=== PATIENT | female | born 1940 | race Caucasian/White ===

== ENCOUNTER → 2016-10-13 | Outpatient (CLI) | payer MEDICARE, OTHER ==
--- NOTE | 2016-10-13 19:30 | REP ---
MRCP examination without contrast: History: Acute biliary pain. Acute biliary pancreatitis without necrosis or infection. Technique: Axial T2 HASTE and coronal T2 TRUFISP images are acquired. In addition, maximum intensity projection images from MRCP examination are acquired and displayed rotational. MRCP findings: No pancreatic or hepatic lesion is seen. The main pancreatic duct is normal in caliber, contour and course. The common bile duct does not appear dilated. It measures 6 mm in greatest diameter. Visualized intrahepatic biliary tract radicals are unremarkable. There is a tiny 3-4 mm cyst in the right lobe of the liver seen on MRCP images. Impression: Tiny hepatic cysts seen, otherwise normal MRCP examination. Signed by Avni Fletcher MD 10/14/2016 07:51 A
== END ==
LOC: M RAD 10:43
PROVIDERS: ATTEND Internal Medicine Gastroenterology
DX: K76.89 Other specified diseases of liver (principal)

== ENCOUNTER → 2021-01-25 | Outpatient (REF) | payer MEDICARE, OTHER ==
[2021-01-25 18:38] LABS: APPEARANCE, URINE HAZY (CLEAR); BACTERIA, URINE AUTO NEGATIVE (NEGATIVE); BILIRUBIN, URINE AUTO NEGATIVE (NEGATIVE); BLOOD, URINE BLOOD NEGATIVE (NEGATIVE); COLOR, URINE YELLOW (YELLOW); GLUCOSE, URINE (UA) AUTO NEGATIVE (NEGATIVE); KETONE, URINE AUTO NEGATIVE (NEGATIVE); LEUKOCYTE ESTERASE, URINE AUTO NEGATIVE (NEGATIVE); MUCUS, URINE SMALL (NEGATIVE); NITRITE, URINE AUTO NEGATIVE (NEGATIVE); PROTEIN, URINE AUTO NEGATIVE (NEGATIVE); RBC, URINE AUTO 0 /HPF (0-3); SPECIFIC GRAVITY URINE AUTO 1.015 (1.002-1.035); SQUAMOUS EPITHELIAL CELL UR AU 3 /HPF (0-6); UROBILINOGEN, URINE AUTO 0.2 mg/dL (0.0-2.0); WBC, URINE AUTO 0 /HPF (0-3)
== END ==
LOC: M SMT 16:56
PROVIDERS: ATTEND Nurse Practitioner Family
DX: N39.0 Urinary tract infection, site not specified (principal); N39.41 Urge incontinence
CPT/HCPCS: 51798; 81001; 87086; G0463

== ENCOUNTER → 2021-03-24 | Outpatient (REF) | payer MEDICARE, OTHER ==
[2021-03-24 19:52] LABS: MALB URINE SIEMENS 8.7 MG/L; MAU/CREAT RATIO 13.1 MCG/MG (0.0-30.0)
== END ==
LOC: M LAB REF 17:13
PROVIDERS: ATTEND Nurse Practitioner Family
DX: E11.9 Type 2 diabetes mellitus without complications (principal)

== ENCOUNTER → 2021-10-19 | Outpatient (CLI) | payer MEDICARE, OTHER ==
[~2021-10-19] MED LIST: ACET1TAB55 PO; ASPI81TA26 PO; CALC250T PO; CETI5SOL3 PO; DILT60TA PO; HUMA100I5 SC; LANTINJ4 SC; LIDOCAINE 1% MDV 20ML VIAL As Ordered ONE; LIPI20TA PO; LOSA50TA28 PO; NORT25CA2 PO; NYSTOI TOP; TIMO0.5S39 OU; TRAV04OPD OU; VITMTA PO; [UNRECOGNIZED DRUG - OTHER] PO
[2021-10-19 10:03] LABS: INR 1.1; PROTHROMBIN TIME 14.6 SECONDS (12.7-14.5)
[2021-10-19 12:15] VITALS: BP 152/73
== END ==
LOC: M IRPRO 08:26
PROVIDERS: ATTEND Internal Medicine Gastroenterology
DX: C78.7 Secondary malignant neoplasm of liver and intrahepatic bile duct (principal); K86.89 Other specified diseases of pancreas; E11.9 Type 2 diabetes mellitus without complications; K85.10 Biliary acute pancreatitis without necrosis or infection; K57.90 Diverticulosis of intestine, part unspecified, without perforation or abscess without bleeding; D01.7 Carcinoma in situ of other specified digestive organs